=== PATIENT | female | born 1985 ===

== ENCOUNTER 2017-04-22 14:16 | Observation (INO) | payer MEDICAID ==
[2017-04-22 14:29] VITALS: RESP 18
--- NOTE | 2017-04-22 14:54 | ED PDOC ---
HPI: General Adult Time Seen by Provider: 04/22/17 14:20 Chief Complaint (Nursing): Headache Chief Complaint (Provider): Weight loss, headaches History Per: Patient History/Exam Limitations: no limitations Onset/Duration Of Symptoms: Persistent Have you had recent travel within the past 21 days to any of the following countries: [place], [place], [place] or [place]?: No Current Symptoms Are (Timing): Still Present Additional History Per: Patient Additional Complaint(s): The patient is a 31yo female, presents to the ED for evaluation of generalized weakness, headaches and weight loss for the past 3 months. Patient reports increased fatigue and states she has decreased appetite, describing it as " comes and goes." Patient denies any diarrhea, bloody stools, abdominal pain. She offers no additional medical complaints. Past Medical History Reviewed: Historical Data, Nursing Documentation, Vital Signs Vital Signs: Last Vital Signs Temp 98.3 F 04/22/17 16:56 Pulse 78 04/22/17 16:56 Resp 18 04/22/17 16:56 BP 108/74 04/22/17 16:56 Pulse Ox 99 04/23/17 03:13 - Medical History PMH: Anxiety - Surgical History Surgical History: Appendectomy Other surgeries: Ectopic , breast augmentation - Family History Family History: States: No Known Family Hx - Social History Current smoker - smoking cessation education provided: No Ex-Smoker (has not smoked in the last 12 months): No Alcohol: Occasional Drugs: Denies - Allergies Allergies/Adverse Reactions: Allergies Allergy/AdvReac Type Severity Reaction Status Date / Time shellfish derived Allergy RASH Verified 04/22/17 14:24 Review of Systems Constitutional: Positive for: Weakness, Weight loss Gastrointestinal: Positive for: Nausea. Negative for: Vomiting, Abdominal Pain , Diarrhea, Hematochezia Neurological: Positive for: Headache Physical Exam - Reviewed Nursing Documentation Reviewed: Yes Vital Signs Reviewed: Yes - Physical Exam Appears: Positive for: Non-toxic, No Acute Distress Head Exam: Positive for: ATRAUMATIC, NORMAL INSPECTION, NORMOCEPHALIC Skin: Positive for: Warm, Dry Eye Exam: Positive for: Normal appearance Neck: Positive for: Supple Cardiovascular/Chest: Positive for: Regular Rate, Rhythm. Negative for: Murmur Respiratory: Positive for: Normal Breath Sounds. Negative for: Wheezing, Respiratory Distress Gastrointestinal/Abdominal: Positive for: Soft. Negative for: Tenderness, Mass , Guarding, Rebound Extremity: Positive for: Normal ROM. Negative for: Deformity, Swelling Neurologic/Psych: Positive for: Alert, Oriented. Negative for: Motor/Sensory Deficits - Laboratory Results Result Diagrams: 04/22/17 15:10 04/22/17 15:10 - ECG O2 Sat by Pulse Oximetry: 99 (RA) Pulse Ox Interpretation: Normal Medical Decision Making Medical Decision Making: Time: 1430 Impression: Weight loss with weakness and headache Plan: -- Labs -- TSH -- T4 -- Zofran 4mg IV -- IV Fluids Time: 1700 Patient aware blood sugar slightly elevated. Thyroid function appears normal. --Patient is depressed, and complaining of persistent headache --Ordered CT Head w/o contrast Patient to be signed out to Dr. Lopez pending CT studies and crisis evaluation. pt denies SI or HI. Scribe Attestation: Documented by Veronica Stauffer, acting as a scribe for Joycelyn Rapp MD. Provider Scribe Attestation: All medical record entries made by the Scribe were at my direction and personally dictated by me. I have reviewed the chart and agree that the record accurately reflects my personal performance of the history, physical exam, medical decision making, and the department course for this patient. I have also personally directed, reviewed, and agree with the discharge instructions and disposition. Disposition - Clinical Impression Clinical Impression: Generalized weakness, Depression - Patient ED Disposition Is Patient to be Admitted: Transfer of Care - Disposition Disposition: Transfer of Care Disposition Time: 17:00 Condition: IMPROVED Patient Signed Over To: Matt Lopez Handoff Comments: pending CT head, reevaluation
[2017-04-22] MEDS ORDERED: Sodium Chloride 0.9% 1,000 ML IV STA (14:58)
[2017-04-22 15:29] LABS: BASO % 0.6 % (0.0-2.0); EOS # 0.1 K/uL (0.0-0.7); EOS % 1.3 % (0.0-4.0); HEMATOCRIT 42.1 % (34.0-47.0); LYMPH # 1.3 K/uL (1.0-4.3); LYMPH % 20.2 % (20.0-40.0); MEAN CELL VOLUME 93.6 fl (81.0-99.0); MEAN CORPUSCULAR HEMOGLOBIN 31.1 pg (27.0-31.0); MEAN CORPUSCULAR HGB CONC 33.2 g/dL (33.0-37.0); MEAN PLATELET VOLUME 8.6 fl (7.2-11.7); MONO # 0.5 K/uL (0.0-0.8); NEUT # 4.7 K/uL (1.8-7.0); NEUT % 70.9 % (50.0-75.0); NRBC % 0.1 % (0.0-0.0); RED CELL DISTRIBUTION WIDTH 12.7 % (11.5-14.5); WHITE BLOOD COUNT 6.7 K/uL (4.8-10.8)
[2017-04-22 15:58] LABS: ALB/GLOB RATIO 1.4 (1.0-2.1); ALKALINE PHOSPHATASE 47 U/L (38-126); ALT/SGPT 15 U/L (9-52); AST/SGOT 27 U/L (14-36); BILIRUBIN,TOTAL 0.6 mg/dl (0.2-1.3); BLOOD UREA NITROGEN 11 mg/dl (7-17); CALCIUM 9.4 mg/dL (8.4-10.2); CARBON DIOXIDE 26 mmol/L (22-30); CHLORIDE 103 mmol/L (98-107); GFR AFRICAN-AMERICAN > 60; GLUCOSE,RANDOM 109 mg/dL (65-105); POTASSIUM 4.1 MMOL/L (3.6-5.0); SODIUM 144 mmol/l (132-148); TOTAL PROTEIN 7.5 G/DL (6.3-8.2)
[2017-04-22 16:12] LABS: T4 8.66 ug/dl (5.5-11.0)
[2017-04-22 16:26] LABS: THYROID STIMULATING HORMONE 1.35 mIU/ML (0.46-4.68)
[2017-04-22 16:57] VITALS: BP 108/74; PULSE 78; TEMP 98.3
[2017-04-22 17:14] VITALS: O2SAT 99
--- NOTE | 2017-04-22 17:19 | ED PDOC ---
- Laboratory Results Result Diagrams: 04/22/17 15:10 04/22/17 15:10 - ECG O2 Sat by Pulse Oximetry: 99 (RA) Pulse Ox Interpretation: Normal Medical Decision Making Medical Decision Making: Receiving sign out: Patient signed out to me by Dr. Rapp at [address] head. Scribe Attestation: Documented by Veronica Stauffer acting as a scribe for Matt Lopez MD. Provider Attestation: All medical record entries made by the Scribe were at my direction and personally dictated by me. I have reviewed the chart and agree that the record accurately reflects my personal performance of the history, physical exam, medical decision making, and the department course for this patient. I have also personally directed, reviewed, and agree with the discharge instructions and disposition. Disposition - Clinical Impression Clinical Impression: Generalized weakness - POA Present On Arrival: None - Disposition Disposition: Transfer of Care Disposition Time: 15:55 Condition: IMPROVED Patient Signed Over To: Thad Mcdonald Handoff Comments: pending crisis ED OBSERVATION Date of observation admission: 04/22/17 Time of observation admission: 15:55 - Observation admission statement Patient is being placed in observation because:: Patient with weakness, headache - Goals of Observation Goals of observation are:: Imaging studies, crisis evaluation - Progress Note Progress Note: 04/22/17 17:00 Patient signed out to me pending CT results 04/22/17 18:30 CT Head FINDINGS: HEMORRHAGE: No intracranial hemorrhage. BRAIN: No mass effect or edema. No atrophy or chronic microvascular ischemic changes. VENTRICLES: Unremarkable. No hydrocephalus. CALVARIUM: Unremarkable. PARANASAL SINUSES: Unremarkable as visualized. No significant inflammatory changes. MASTOID AIR CELLS: Unremarkable as visualized. No inflammatory changes. OTHER FINDINGS: None. IMPRESSION: Normal CT of the Head. 04/22/17 19:07 Patient to be signed out to Dr. Mcdonald pending crisis evaluation.
--- NOTE | 2017-04-22 18:12 | CT ---
PROCEDURE: CT HEAD WITHOUT CONTRAST. HISTORY: headache COMPARISON: None available. TECHNIQUE: Axial computed tomography images were obtained through the head/brain without intravenous contrast. Radiation dose: Total exam DLP = 780.47 mGy-cm. This CT exam was performed using one or more of the following dose reduction techniques: Automated exposure control, adjustment of the mA and/or kV according to patient size, and/or use of iterative reconstruction technique. FINDINGS: HEMORRHAGE: No intracranial hemorrhage. BRAIN: No mass effect or edema. No atrophy or chronic microvascular ischemic changes. VENTRICLES: Unremarkable. No hydrocephalus. CALVARIUM: Unremarkable. PARANASAL SINUSES: Unremarkable as visualized. No significant inflammatory changes. MASTOID AIR CELLS: Unremarkable as visualized. No inflammatory changes. OTHER FINDINGS: None. IMPRESSION: Normal CT of the Head.
--- NOTE | 2017-04-22 19:24 | ED PDOC ---
- Laboratory Results Result Diagrams: 04/22/17 15:10 04/22/17 15:10 - ECG O2 Sat by Pulse Oximetry: 99 (RA) Pulse Ox Interpretation: Normal Medical Decision Making Medical Decision Making: Receiving sign out: Patient signed out to me by Dr. Lopez at 1900 pending Crisis evaluation and disposition. Scribe Attestation: Documented by Veronica Stauffer acting as a scribe for Thad Mcdonald MD. Provider Attestation: All medical record entries made by the Scribe were at my direction and personally dictated by me. I have reviewed the chart and agree that the record accurately reflects my personal performance of the history, physical exam, medical decision making, and the department course for this patient. I have also personally directed, reviewed, and agree with the discharge instructions and disposition. Disposition - Clinical Impression Clinical Impression: Generalized weakness, Depression - POA Present On Arrival: None - Disposition Disposition: Routine/Home Disposition Time: 15:55 Condition: IMPROVED
[2017-04-22] MEDS ORDERED: Apap-Butalbital-Caffeine 325-50-40mg Tab PO STA (20:10)
[2017-04-22] MEDS ORDERED: Apap-Butalbital-Caffeine 325-50-40mg Tab ONE (20:11)
== END 2017-04-22 19:49 | disposition home or self-care (01) ==
LOC: H.ER 14:16 → H.EROBSV 15:55
PROVIDERS: ADMIT Emergency Medicine; ATTEND Emergency Medicine
DX: F32.9 Major depressive disorder, single episode, unspecified (principal); F41.9 Anxiety disorder, unspecified; R51 Headache; R53.1 Weakness; Z91.013 Allergy to seafood; Z87.891 Personal history of nicotine dependence
CPT/HCPCS: 70450; 80053; 81025; 84436; 84443; 85025; 96360; 99285; G0378; J2405; J7040

== ENCOUNTER 2018-12-17 09:06 | Emergency (ER) | payer MEDICAID, OTHER ==
[2018-12-17 09:24] VITALS: BMI 22.1
[2018-12-17 09:32] VITALS: O2SAT 98
--- NOTE | 2018-12-17 09:45 | ED PDOC ---
HPI: CCC, URI, Sore Throat Time Seen by Provider: 12/17/18 09:30 Chief Complaint (Nursing): Flu-like Symptoms History Per: Patient Onset/Duration Of Symptoms: Days (3) Current Symptoms Are (Timing): Still Present Location Of Pain: Throat Associated Symptoms: Fever, Sore Throat. denies: Cough Severity: Moderate Additional Complaint(s): Sore throat assoc with fever and pain on swallowing x 3 days. Denies cough. Tolerating PO fluids Past Medical History Vital Signs: Last Vital Signs Temp 100.7 F H 12/17/18 09:22 Pulse 110 H 12/17/18 09:22 Resp 14 12/17/18 09:22 BP 106/69 12/17/18 09:22 Pulse Ox 98 12/17/18 09:29 Primary Care Provider: FAMILY PROVIDER,NO - Medical History PMH: Anxiety Denies: Diabetes, Hepatitis, HIV, HTN, Seizures, Sexually Transmitted Disease - Surgical History Surgical History: Appendectomy - Family History Family History: States: Unknown Family Hx - Home Medications Home Medications: Ambulatory Orders Medication Instructions Recorded Amoxicillin/Clavulanate [Augmentin 1 tab PO BID #20 tab 12/17/18 875 MG-125 MG] Naproxen [Naprosyn] 500 mg PO Q12H #20 tab 12/17/18 - Allergies Allergies/Adverse Reactions: Allergies Allergy/AdvReac Type Severity Reaction Status Date / Time shellfish derived Allergy RASH Verified 12/17/18 09:29 Review of Systems Constitutional: Positive for: Fever ENT: Positive for: Throat Pain Respiratory: Negative for: Cough, Shortness of Breath Physical Exam - Physical Exam Appears: Positive for: Non-toxic, No Acute Distress Skin: Positive for: Normal Color, Warm, DRY ENT: Positive for: Pharyngeal Erythema, Tonsillar Exudate, Other (No deviation of vuvula or asymetric swelling) - Laboratory Results Result Diagrams: 12/17/18 10:00 12/17/18 10:00 - ECG O2 Sat by Pulse Oximetry: 98 Medical Decision Making Medical Decision Making: Pt is non-toxic and tolerating PO. Will DC home on augmentin 875 BID with f/u C FH tomorrow. Disposition - Clinical Impression Clinical Impression: Exudative tonsillitis - Patient ED Disposition Is Patient to be Admitted: No Counseled Patient/Family Regarding: Studies Performed, Diagnosis, Need For Followup, Rx Given - Disposition Referrals: Tez Carmona MD [Staff Provider] - Disposition: Routine/Home Disposition Time: 10:44 Condition: FAIR Prescriptions: Amoxicillin/Clavulanate [Augmentin 875 MG-125 MG] 1 tab PO BID #20 tab Naproxen [Naprosyn] 500 mg PO Q12H #20 tab Instructions: Sore Throat, Adult (DC) Forms: [employer] (Italian)
[2018-12-17] MEDS ORDERED: Sodium Chloride 0.9% 1,000 ML IV STA (09:50)
[2018-12-17 10:14] LABS: VENOUS BLOOD GAS PCO2 44 mmHg (40-60); VENOUS BLOOD GAS PO2 26 mm/Hg (30-55)
[2018-12-17 10:20] LABS: BASO % 0.3 % (0.0-2.0); EOS % 0.1 % (0.0-4.0); HEMOGLOBIN 12.7 g/dL (12.0-16.0); MEAN CELL VOLUME 93.9 fl (81.0-99.0); MEAN CORPUSCULAR HEMOGLOBIN 31.1 pg (27.0-31.0); MEAN CORPUSCULAR HGB CONC 33.1 g/dL (33.0-37.0); MEAN PLATELET VOLUME 8.4 fl (7.2-11.7); MONO # 1.5 K/uL (0.0-0.8); MONO % 8.7 % (0.0-10.0); NEUT # 14.4 K/uL (1.8-7.0); NEUT % 84.9 % (50.0-75.0); PLATELET COUNT 201 K/uL (130-400); RBC 4.07 Mil/uL (3.80-5.20); RED CELL DISTRIBUTION WIDTH 13.1 % (11.5-14.5)
[2018-12-17 10:27] LABS: ALB/GLOB RATIO 1.4 (1.0-2.1); ALT/SGPT 16 U/L (9-52); AST/SGOT 17 U/L (14-36); BLOOD UREA NITROGEN 7 mg/dl (7-17); CALCIUM 8.6 mg/dL (8.4-10.2); GFR NON-AFRICAN AMERICAN > 60
[2018-12-17 10:58] VITALS: RESP 20
[2018-12-17 11:08] VITALS: BP 112/70; PULSE 74; TEMP 98.6
[2018-12-17 11:39] LABS: BANDS 2 % (0-2); LYMPHOCYTE 7 % (20-50); MONOCYTE 8 % (0-10); NEUTROPHIL 83 % (42-75); PLATELET ESTIMATE NORMAL (NORMAL); TOTAL CELLS COUNTED 100
[2018-12-17 11:40] LABS: LARGE PLATELETS PRESENT
== END 2018-12-17 11:09 | disposition home or self-care (01) ==
LOC: H.ER 09:06
DX: J03.90 Acute tonsillitis, unspecified (principal)
CPT/HCPCS: 80053; 81025; 82803; 85025; 87040; 87070; 87430; 96374; 99283; J1885; J7030